=== PATIENT | male | born 1980 | race Caucasian/White ===

== ENCOUNTER 2017-09-24 18:09 | Emergency (ER) | payer OTHER ==
[2017-09-24 18:41] VITALS: BP 151/95; PULSE 131; RESP 24; TEMP 98.5; O2SAT 98
[2017-09-24] MEDS ORDERED: APAP/OXYCODONE 325/5 TAB PO ONE (18:50)
[2017-09-24] MEDS ORDERED: APAP/OXYCODONE 325/5 TAB ONE (18:52)
== END 2017-09-24 19:29 | disposition home or self-care (01) | DRG 605 ==
LOC: ED 18:09
DX: S60.221A Contusion of right hand, initial encounter (principal); W22.8XXA Striking against or struck by other objects, initial encounter
CPT/HCPCS: 73130; 99282; A9270-GY

== ENCOUNTER 2018-01-26 13:23 | Emergency (ER) | payer OTHER ==
[2018-01-26 13:32] VITALS: RESP 20; TEMP 97.1
[2018-01-26] MEDS ORDERED: APAP/HYDROCODONE 325/5 TAB ONE (14:02)
[2018-01-26] MEDS: APAP/HYDROCODONE 325/5 TAB PO ONE (14:05)
[2018-01-26 15:02] VITALS: BP 132/106; PULSE 105; O2SAT 93
== END 2018-01-26 14:38 | disposition home or self-care (01) | DRG 605 ==
LOC: ED 13:23
DX: S60.222A Contusion of left hand, initial encounter (principal); X58.XXXA Exposure to other specified factors, initial encounter
CPT/HCPCS: 73130; 99283; A9270-GY

== ENCOUNTER 2018-02-23 13:27 | Emergency (ER) | payer OTHER ==
[2018-02-23 13:45] VITALS: RESP 20; O2SAT 98
[2018-02-23] MEDS ORDERED: HYDROMORPHONE 1 MG/ML SYRINGE IV ONE (13:47)
[2018-02-23] MEDS ORDERED: HYDROMORPHONE HCL 2 MG/ML SOL ONE (14:12)
[2018-02-23 14:31] LABS: BASOPHILS % (AUTO) 2 % (0-3); EOSINOPHILS % (AUTO) 1 % (0-9); HEMATOCRIT 44 % (39-53); HEMOGLOBIN 15.3 gm/dl (13.5-17.7); LYMPHOCYTES % (AUTO) 23.9 % (10-50); MEAN CORPUSCULAR HGB CONC 34.4 gm/dl (32.0-36.0); MONOCYTES % (AUTO) 5.7 % (0-12); NEUTROPHILS % (AUTO) 67.8 % (37-80)
[2018-02-23 14:37] LABS: MEAN CORPUSCULAR VOLUME 81 fL (80-100)
[2018-02-23 15:09] VITALS: BP 139/95; PULSE 98; TEMP 97.4
== END 2018-02-23 15:03 | disposition home or self-care (01) | DRG 313 ==
LOC: ED 13:27
DX: R07.89 Other chest pain (principal); M54.9 Dorsalgia, unspecified; M79.641 Pain in right hand; M25.552 Pain in left hip
CPT/HCPCS: 71046; 72070; 72120; 73130; 73502; 85025; 96374; 99284; J1170